=== PATIENT | female | born 1945 | race Two or more races ===

== ENCOUNTER 2025-01-22 14:46 | Emergency (ER) | payer OTHER ==
[~2025-01-22] VITALS: Ht 167.6 cm; Wt 76.7 kg
[~2025-01-22 14:46] MED LIST: ATORVASTATIN CA40 MG; COZAAR25 MG; COZAAR50 MG; HUMULIN 70/30 V10 ML; METFORMIN HCL500 MG; SYNTHROID100 MCG; TENORMIN25 MG
[2025-01-22] MEDS ORDERED: ESBRIET267 MG (15:50)
[2025-01-22] MEDS ORDERED: 0.9 % SODIUM CHLORIDE 500 ML IV ONE (16:30)
[2025-01-22 18:15] LABS: BASO % 0.5 % (0.1-1.2); EOS # 0.35 (0.04-0.54); EOS % 2.7 % (0.7-7.0); LYMPH # 3.22 (1.18-3.74); LYMPH % 24.9 % (19.3-53.1); MEAN PLATELET VOLUME 9.20 fl (9.4-12.4); MONO # 1.02 (0.24-0.82); MONO % 7.9 % (4.7-12.5); NEUT # 8.24 (1.56-6.13); NEUT % 63.7 % (34.0-71.1); RED CELL DISTRIBUTION WIDTH 12.5 % (11.6-14.4)
[2025-01-22 18:39] LABS: INR 1.04
[2025-01-22 18:44] LABS: ALT/SGPT 16.0 U/L (12-78); AST/SGOT 16.0 U/L (15-37); BILIRUBIN TOTAL 0.3 mg/dL (0.3-1.2); BUN CREA RATIO 27.0 (7.0-25.0); CREATININE SERUM 0.64 mg/dL (0.55-1.02); GFR 89.98; GLOBULINA 3.5 G/DL (2.4-3.5); GLUCOSE FASTING 151.0 mg/dL (65-100); OSMOLALITY SERUM 288.0 MOSM/KG (275-295)
[2025-01-22 19:37] LABS: COVID-19 AG NEGATIVE (NEGATIVE)
[2025-01-22 20:37] LABS: URINE APPEARANCE Cloudy; URINE BILIRRUBIN Negative (NEGATIVE); URINE BLOOD Moderate; URINE COLOR Yellow; URINE GLUCOSE Negative (NEGATIVE); URINE KETONE Negative (NEGATIVE); URINE LEUKOCYTE Large; URINE NITRATE Negative; URINE PROTEIN Trace (NEGATIVE); URINE UROBILINOGEN 0.2 E.U./dl
[2025-01-22 20:41] LABS: URINE EPITHELIAL CELLS 54.1 uL (0.0-38.8); URINE RBC 17.1 uL (0.0-20.8); URINE WBC 1769.7 uL (0.0-23.2)
[2025-01-22 21:12] LABS: URINE CAST 0.29 uL (0.0-1.40)
[2025-01-22] MEDS ORDERED: MACROBID 100 M100 MG PO (21:17)
== END 2025-01-22 21:37 | disposition home or self-care (01) ==
LOC: ER 14:47
DX: R42 Dizziness and giddiness (principal); Z20.822 Contact with and (suspected) exposure to COVID-19; E03.8 Other specified hypothyroidism; E11.9 Type 2 diabetes mellitus without complications; Z79.84 Long term (current) use of oral hypoglycemic drugs; Z88.5 Allergy status to narcotic agent
CPT/HCPCS: 36415; 70450; 71046; 93005; 96365; 96366; 99284; J7042

== ENCOUNTER 2025-02-28 23:43 | Emergency (ER) | payer OTHER ==
[~2025-02-28] VITALS: Ht 167.6 cm; Wt 74.4 kg
[~2025-02-28 23:43] MED LIST changes: +ESBRIET267 MG; +MACROBID 100 M100 MG PO
[2025-03-01] MEDS ORDERED: 0.9 % SODIUM CHLORIDE 500 ML IV ONE (01:15)
[2025-03-01 02:46] LABS: BASO % 0.5 % (0.1-1.2); EOS # 0.43 (0.04-0.54); EOS % 3.0 % (0.7-7.0); LYMPH # 2.77 (1.18-3.74); LYMPH % 19.3 % (19.3-53.1); MEAN PLATELET VOLUME 9.20 fl (9.4-12.4); MONO # 1.33 (0.24-0.82); MONO % 9.3 % (4.7-12.5); NEUT # 9.72 (1.56-6.13); NEUT % 67.6 % (34.0-71.1); RED CELL DISTRIBUTION WIDTH 11.9 % (11.6-14.4)
[2025-03-01 03:32] LABS: ALT/SGPT 14.0 U/L (12-78); AST/SGOT 12.0 U/L (15-37); BILIRUBIN TOTAL 0.24 mg/dL (0.3-1.2); BUN CREA RATIO 30.0 (7.0-25.0); CREATININE SERUM 0.76 mg/dL (0.55-1.02); GFR 73.79; GLOBULINA 3.1 G/DL (2.4-3.5); GLUCOSE FASTING 188.0 mg/dL (65-100); OSMOLALITY SERUM 292.0 MOSM/KG (275-295)
[2025-03-01 08:12] LABS: URINE APPEARANCE Clear; URINE BILIRRUBIN Negative (NEGATIVE); URINE BLOOD Negative; URINE COLOR Yellow; URINE GLUCOSE Negative (NEGATIVE); URINE KETONE Trace (NEGATIVE); URINE LEUKOCYTE Small; URINE NITRATE Negative; URINE PROTEIN Negative (NEGATIVE); URINE UROBILINOGEN 0.2 E.U./dl
[2025-03-01 08:15] LABS: URINE BACTERIA 650.7 uL (0.0-1933); URINE EPITHELIAL CELLS 11.9 uL (0.0-38.8); URINE RBC 8.3 uL (0.0-20.8); URINE WBC 82.1 uL (0.0-23.2)
[2025-03-01 08:28] LABS: URINE CAST 0.42 uL (0.0-1.40)
[2025-03-01] MEDS ORDERED: CEFTRIAXONE SODIUM 1,000 MG VIAL IV ONE (08:45)
[2025-03-01] MEDS ORDERED: CEFTRIAXONE SODIUM 1,000 MG VIAL ONE (09:24)
[2025-03-01] MEDS ORDERED: CIPRO500 MG PO (09:49)
== END 2025-03-01 10:51 | disposition home or self-care (01) ==
LOC: ER 23:43
PROVIDERS: General Practice
DX: I95.9 Hypotension, unspecified (principal); N39.0 Urinary tract infection, site not specified; R42 Dizziness and giddiness; R53.1 Weakness; I10 Essential (primary) hypertension; E11.9 Type 2 diabetes mellitus without complications; Z79.84 Long term (current) use of oral hypoglycemic drugs; Z88.5 Allergy status to narcotic agent
CPT/HCPCS: 36415; 70450; 93005; 96365; 96366; 99284; J0696; J7042